=== PATIENT | male | born 1970 | race Hispanic/Latino ===

== ENCOUNTER 2017-08-07 20:48 | Inpatient (IN) | payer MEDICAID ==
--- NOTE | 2017-08-07 21:06 | C.PDOC ---
History Of Present Illness 47 y/o male presents via EMS for psychiatric transfer from [facility]. Patient was already evaluated and medically cleared for psychiatric admission. Accepted to [facility] psychiatric unit under service of Dr. Flores Time Seen by Provider: 08/07/17 21:04 Chief Complaint (Nursing): Medical Clearance History Per: Patient History/Exam Limitations: no limitations Onset/Duration Of Symptoms: Days Current Symptoms Are (Timing): Still Present Reports Recently: Seen In ED Past Medical History Reviewed: Historical Data, Nursing Documentation, Vital Signs Vital Signs: Last Vital Signs Temp 97.9 F 08/07/17 20:50 Pulse 94 H 08/07/17 20:50 Resp 18 08/07/17 20:50 BP 110/75 08/07/17 20:50 Pulse Ox 97 08/07/17 21:06 - Medical History PMH: Back Problems, Bipolar Disorder, HTN, Malignancy (Lung CA), Pancreatitis, Schizophrenia, Seizures (DUE TO ALCOHOL W/D) Other Surgeries: Spinal surgery Family History: States: No Known Family Hx - Social History Hx Alcohol Use: Yes Hx Substance Use: No (DENIED) Review Of Systems Constitutional: Negative for: Fever Respiratory: Negative for: Shortness of Breath Gastrointestinal: Negative for: Abdominal Pain Psych: Positive for: Depression Physical Exam - Physical Exam Appears: Non-toxic, No Acute Distress Skin: Warm, Dry Head: Normacephalic Eye(s): bilateral: Normal Inspection Oral Mucosa: Moist Neck: Supple Chest: Symmetrical Cardiovascular: Rhythm Regular Respiratory: No Rales, No Rhonchi, No Wheezing Gastrointestinal/Abdominal: Soft, No Tenderness, No Distention Extremity: Bilateral: Atraumatic, Normal Color And Temperature, Normal ROM Neurological/Psych: Oriented x3, Other (Depressed affect) Gait: Steady ED Course And Treatment O2 Sat by Pulse Oximetry: 97 (RA) Pulse Ox Interpretation: Normal Progress Note: Pt already medically cleared for admision. Dr. Flores to take over care Disposition Discussed With : Suzanna Flores Comment: accepted the pt on his service and took over the care at 9PM Doctor Will See Patient In The: Hospital Counseled Patient/Family Regarding: Studies Performed, Diagnosis - Disposition Disposition: HOSPITALIZED Disposition Time: 21:04 Condition: FAIR Forms: [facility] (Macedonian) - Clinical Impression Clinical Impression: Major depression - Scribe Statement The provider has reviewed the documentation as recorded by the Scribe (Portia Farris) Provider Attestation: All medical record entries made by the Scribe were at my direction and personally dictated by me. I have reviewed the chart and agree that the record accurately reflects my personal performance of the history, physical exam, medical decision making, and the department course for this patient. I have also personally directed, reviewed, and agree with the discharge instructions and disposition. Decision To Admit - Pt Status Changed To: Hospital Disposition Of: Inpatient - Admit Certification Admit to Inpatient:: After my assessment, the patient will require hospitalization for at least two midnights. This is because of the severity of symptoms shown, intensity of services needed, and/or the medical risk in this patient being treated as an outpatient. - InPatient: Physician Admission Certification: I certify that this patient requires 2 or more midnights of care for the following reason:: After my assessment, the patient will require hospitalization for at least two midnights. This is because of the severity of symptoms shown, intensity of services needed, and/or the medical risk in this patient being treated as an outpatient. - . Bed Request Type: Psychiatry Admitting Physician: Suzanna Flores Patient Diagnosis: Major depression
--- NOTE | 2017-08-07 22:23 | PCM.BM ---
<Madhuri López - Last Filed: 08/07/17 22:20> Treatment Plan Problems - Problems identified on initial assessmt Depression Date Initiated: 08/07/17 Time Initiated: 22:20 Assessment reference: NA Status: Active Alcohol Abuse Date Initiated: 08/07/17 Time Initiated: 22:20 Assessment reference: NA Status: Active Treatment assets and liabiliti Patient Assests: cooperative, ADL independent, physically healthy, negotiates basic needs, cognitively intact Patient Liabilities: live alone (Homeless), financial problems, substance abuse (+ Benzo, THC, Bal 203, hx of Alcohol), medical problems (Pancreatitis, Colon Ca , Anemia, GI bleed, HTN, Chronic back pain) - Milieu Protocol Maintain good personal hygiene: daily Encourage regular showers, daily Remind patient to perform daily oral care, daily Assist patient to perform ADL's (Self) Conduct patient checks and document Observation sheet: Q15 minutes (Ssfety) Maintain personal safety: every shift Educate patient to report safety concerns to staff, every shift Monitor environment for contraband/sharps Medication safety: Monitor for expected outcome, potential side effects: every shift, Assess barriers to learning: every shift, Assess readiness for medication education: every shift <Suzanna Flores - Last Filed: 08/09/17 19:03> - Diagnosis (1) Schizoaffective disorder Status: Acute Interventions: 08/09/17 19:03 * Assess/adjust medications daily and /or as needed * See patient on an individual basis 7x/week to assess status of hallucinations * Discuss risks, benefits, side effects and alternatives of medications * (2) Alcohol dependence Status: Acute Interventions: 08/09/17 19:03 * Assess 7x/week regarding severity of withdrawal * Educate regarding risks, benefits, side effects and alternatives of medications * Use Motivational Interviewing for abstinence * Use CBT for relapse prevention * Medication management for withdrawal symptoms * Encourage medication assisted treatment * <Hyacinth Xiong - Last Filed: 08/09/17 19:07> Family Contact Family involvement: Patient does not wish Family/SO involvement Family contact: Patient declines to allow family contact at present - Goals for Treatment Patient goals for treatment: "I to be referred to a care home house or residential program." Discharge/Continuing Care - Education Needs Education Needs: Patient Medication, Patient Diagnosis/Disease Process, Patient Coping Skills, Patient Aftercare Safety Plan - Discharge Discharge Criteria: Free of Suicidal thoughts, Free of paranoid thoughts, Free of agitation, Normal sleep pattern, Ability to care for self, No longer exhibiting s/s of withdrawal, Reduction of target symptoms Discharge to:: Substance Abuse Rehab - Treatment Team Participation Discussed with Family/SO: No Was Patient/Family/SO present at Treatment Team Meeting: Yes
[2017-08-08] MEDS: Multiple Vitamins Tab PO SCH (10:03)
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
[2017-08-08] MEDS: Oxycodone/Acetaminophen 5/325 mg Tab PO PRN (16:01)
[2017-08-08] MEDS: Divalproex 500 mg DR Tab PO SCH ×3 (16:20→17:34)
[2017-08-08] MEDS: Bacitracin Ointment 30 GM TUBE TOP SCH (16:39)
[2017-08-08] MEDS: Silver Sulfadiazine 1% Cream (20 gm) TOP SCH (17:06)
[2017-08-08] MEDS ORDERED: Tmp-Smz 800 mg-160 mg DS Tab PO SCH (18:00)
[2017-08-08 20:14] LABS: BASO # 0.1 K/uL (0.0-0.2); BASO % 0.9 % (0.0-2.0); EOS # 0.3 K/uL (0.0-0.7); EOS % 3.5 % (0.0-4.0); HEMOGLOBIN 8.8 g/dL (12.0-18.0); LYMPH # 1.6 K/uL (1.0-4.3); LYMPH % 22.9 % (20.0-40.0); MEAN CELL VOLUME 90.6 fL (80.0-94.0); MEAN CORPUSCULAR HGB CONC 33.1 g/dL (33.0-37.0); MONO # 0.8 K/uL (0.0-0.8); MONO % 11.3 % (0.0-10.0); NEUT # 4.4 K/uL (1.8-7.0); NEUT % 61.4 % (50.0-75.0); NRBC % 0.2 % (0.0-2.0); RBC 2.94 Mil/uL (4.40-5.90); RED CELL DISTRIBUTION WIDTH 15.5 % (11.5-14.5); WHITE BLOOD COUNT 7.2 K/uL (4.8-10.8)
[2017-08-08 20:27] LABS: ALB/GLOB RATIO 1.1 (1.0-2.1); ALBUMIN 3.1 g/dL (3.5-5.0); ALT/SGPT 37 U/L (21-72); AST/SGOT 40 U/L (17-59); BLOOD UREA NITROGEN 16 mg/dL (9-20); CALCIUM 8.4 mg/dl (8.6-10.4); GFR AFRICAN-AMERICAN > 60; GFR NON-AFRICAN AMERICAN > 60
[2017-08-09] MEDS: Oxycodone/Acetaminophen 5/325 mg Tab PO PRN ×4 (00:07→18:35)
[2017-08-09 07:23] LABS: BASO # 0.1 K/uL (0.0-0.2); BASO % 1.1 % (0.0-2.0); EOS # 0.3 K/uL (0.0-0.7); EOS % 4.7 % (0.0-4.0); HEMOGLOBIN 9.4 g/dL (12.0-18.0); LYMPH % 30.5 % (20.0-40.0); MEAN CELL VOLUME 91.6 fL (80.0-94.0); MEAN CORPUSCULAR HEMOGLOBIN 31.1 pg (27.0-31.0); MEAN CORPUSCULAR HGB CONC 33.9 g/dL (33.0-37.0); MONO # 0.6 K/uL (0.0-0.8); MONO % 9.9 % (0.0-10.0); NEUT # 3.5 K/uL (1.8-7.0); NEUT % 53.8 % (50.0-75.0); NRBC % 0.1 % (0.0-2.0); RBC 3.02 Mil/uL (4.40-5.90); RED CELL DISTRIBUTION WIDTH 15.6 % (11.5-14.5); WHITE BLOOD COUNT 6.4 K/uL (4.8-10.8)
[2017-08-09 07:45] LABS: ALB/GLOB RATIO 1.1 (1.0-2.1); ALBUMIN 3.1 g/dL (3.5-5.0); ALT/SGPT 29 U/L (21-72); AST/SGOT 37 U/L (17-59); BLOOD UREA NITROGEN 16 mg/dL (9-20); CALCIUM 8.5 mg/dl (8.6-10.4); GFR AFRICAN-AMERICAN > 60; GFR NON-AFRICAN AMERICAN > 60
[2017-08-09] MEDS: Tmp-Smz 800 mg-160 mg DS Tab PO SCH ×2 (09:01→21:19)
[2017-08-09] MEDS: Bacitracin Ointment 30 GM TUBE TOP SCH (09:01)
[2017-08-09] MEDS: Silver Sulfadiazine 1% Cream (20 gm) TOP SCH ×2 (09:01→17:59)
[2017-08-09] MEDS: Divalproex 500 mg DR Tab PO SCH ×2 (09:02→17:46)
[2017-08-09] MEDS: Multiple Vitamins Tab PO SCH (09:02)
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
--- NOTE | 2017-08-09 19:02 | PCM.PYCHPN ---
Psychiatric Progress Note - Psychiatric Progress Note Patient seen today, length of contact: 16 min Patient Chief Complaint: "I m feeling very irritable." Problems Identified/Issues Discussed: Patient seen and evaluated, chart reviewed and discussed with the nurse. Patient remained disorganized and internally preoccupied. He still reports of hearing voices. Patient still appears paranoid and delusional. Patient reports withdrawal symptoms including nausea, headaches, cramps and sweating. He reports depressed mood and feelings of hopelessness and helplessness. Patient remained isolated, confined and withdrawn. Patient is compliant with medications and denies any side effects. Symptoms are improving but need more time to stabilize. Support and psychoeducation given. Medication Change: Yes (Librium taper, increase Haldol) Medical Record Reviewed: Yes Mental Status Examination - Cognitive Function Orientation: Person, Place, Situation Memory: Intact Attention: WNL Concentration: Poor Association: Loose Fund of Knowledge: Poor - Mood Mood: Depressed, Anxious - Affect Affect: Broad - Speech Speech: Soft - Formal Thought Process Formal Thought Process: Hallucinations, Delusions, Paranoia, Loosening of associations - Suicidal Ideation Suicidal Ideation: No - Homicidal Ideation Homicidal Ideation: No Goal/Treatment Plan - Goal/Treatment Plan Need for Continued Stay: Severe depression anxiety, Severe functional impairment Progress Toward Problem(s) and Goals/Treatment Plan: Schizo affective disorder bipolar type Alcohol Use Disorder, severe Alcohol withdrawal Gabapentin 300mg BID Haldol 10 mg PO BID Depakote 500 mg PO BID [facility] Taper Trazodone 100 mg PO QHS All risks, benefits and alternatives of the meds discussed, and the pt agreed and understood. Medical Team consulted for treatment of brown. Help appreciated. Attend groups and activities Individual therapy daily Psychoeducation and support daily Encourage compliance with meds and after care Refer to outpatient program Teach healthy lifestyle methods, i.e. diet, exercise, meditation Smoking cessation and patch - Smoking Cessation Smoking Cessation Initiated: No
[2017-08-10] MEDS: Oxycodone/Acetaminophen 5/325 mg Tab PO PRN (07:29)
[2017-08-10] MEDS: Tmp-Smz 800 mg-160 mg DS Tab PO SCH ×2 (09:09→21:09)
[2017-08-10] MEDS: Multiple Vitamins Tab PO SCH (09:09)
[2017-08-10] MEDS: Divalproex 500 mg DR Tab PO SCH ×2 (09:10→17:11)
[2017-08-10] MEDS ORDERED: Pneumococcal 23-Valent Vaccine IM ONE (10:00)
[2017-08-10] MEDS: Silver Sulfadiazine 1% Cream (20 gm) TOP SCH ×2 (10:14→17:15)
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
[2017-08-10] MEDS: Oxycodone/Acetaminophen 5/325 mg Tab PO SCH (21:09)
[2017-08-11 07:59] LABS: BASO # 0.1 K/uL (0.0-0.2); BASO % 1.5 % (0.0-2.0); EOS # 0.2 K/uL (0.0-0.7); EOS % 4.1 % (0.0-4.0); HEMOGLOBIN 9.2 g/dL (12.0-18.0); LYMPH # 1.7 K/uL (1.0-4.3); LYMPH % 29.3 % (20.0-40.0); MEAN CELL VOLUME 90.4 fL (80.0-94.0); MEAN CORPUSCULAR HEMOGLOBIN 30.4 pg (27.0-31.0); MEAN CORPUSCULAR HGB CONC 33.7 g/dL (33.0-37.0); MEAN PLATELET VOLUME 6.8 fL (7.2-11.7); MONO # 0.7 K/uL (0.0-0.8); NEUT # 3.1 K/uL (1.8-7.0); NEUT % 53.1 % (50.0-75.0); RBC 3.03 Mil/uL (4.40-5.90); WHITE BLOOD COUNT 5.8 K/uL (4.8-10.8)
[2017-08-11 08:19] LABS: ALB/GLOB RATIO 1.1 (1.0-2.1); ALBUMIN 3.3 g/dL (3.5-5.0); ALT/SGPT 29 U/L (21-72); AST/SGOT 39 U/L (17-59); BLOOD UREA NITROGEN 13 mg/dL (9-20); CALCIUM 8.6 mg/dl (8.6-10.4); GFR AFRICAN-AMERICAN > 60; GFR NON-AFRICAN AMERICAN > 60
[2017-08-11] MEDS: Divalproex 500 mg DR Tab PO SCH ×2 (09:56→17:18)
[2017-08-11] MEDS: Tmp-Smz 800 mg-160 mg DS Tab PO SCH ×2 (09:56→22:48)
[2017-08-11] MEDS: Multiple Vitamins Tab PO SCH (09:56)
[2017-08-11] MEDS: Oxycodone/Acetaminophen 5/325 mg Tab PO SCH ×2 (09:57→22:48)
[2017-08-11] MEDS: Silver Sulfadiazine 1% Cream (20 gm) TOP SCH ×2 (10:03→17:44)
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
[2017-08-11] MEDS: Saccharomyces Boulardi 250 mg Cap PO SCH (17:45)
--- NOTE | 2017-08-11 20:29 | CP.PCM.PCO ---
Physician Communication Note - Physician Communication Note Physician Communication Note: Please see above
[2017-08-12 06:41] VITALS: RESP 20
[2017-08-12 08:59] LABS: BASO # 0.1 K/uL (0.0-0.2); BASO % 0.7 % (0.0-2.0); EOS # 0.2 K/uL (0.0-0.7); EOS % 2.4 % (0.0-4.0); HEMOGLOBIN 10.7 g/dL (12.0-18.0); LYMPH # 1.5 K/uL (1.0-4.3); LYMPH % 17.7 % (20.0-40.0); MEAN CELL VOLUME 90.9 fL (80.0-94.0); MEAN CORPUSCULAR HEMOGLOBIN 30.5 pg (27.0-31.0); MEAN CORPUSCULAR HGB CONC 33.6 g/dL (33.0-37.0); MEAN PLATELET VOLUME 7.1 fL (7.2-11.7); MONO # 0.7 K/uL (0.0-0.8); MONO % 8.2 % (0.0-10.0); NEUT # 5.9 K/uL (1.8-7.0); RBC 3.5 Mil/uL (4.40-5.90); RED CELL DISTRIBUTION WIDTH 14.9 % (11.5-14.5); WHITE BLOOD COUNT 8.3 K/uL (4.8-10.8)
[2017-08-12 09:12] LABS: ALB/GLOB RATIO 1.2 (1.0-2.1); ALBUMIN 3.8 g/dL (3.5-5.0); ALT/SGPT 27 U/L (21-72); AST/SGOT 39 U/L (17-59); BLOOD UREA NITROGEN 12 mg/dL (9-20); GFR AFRICAN-AMERICAN > 60; GFR NON-AFRICAN AMERICAN > 60
[2017-08-12] MEDS: Divalproex 500 mg DR Tab PO SCH ×2 (09:28→18:38)
[2017-08-12] MEDS: Multiple Vitamins Tab PO SCH (09:28)
[2017-08-12] MEDS: Silver Sulfadiazine 1% Cream (20 gm) TOP SCH ×2 (09:29→18:12)
[2017-08-12] MEDS: Saccharomyces Boulardi 250 mg Cap PO SCH ×2 (09:29→18:39)
[2017-08-12] MEDS: Tmp-Smz 800 mg-160 mg DS Tab PO SCH (09:30)
[2017-08-12] MEDS: Oxycodone/Acetaminophen 5/325 mg Tab PO SCH ×2 (12:34→21:14)
--- NOTE | 2017-08-12 13:08 | PCM.PYCHPN ---
Psychiatric Progress Note - Psychiatric Progress Note Patient seen today, length of contact: 16 min Patient Chief Complaint: "I m feeling little better." Problems Identified/Issues Discussed: Patient seen and evaluated, chart reviewed and discussed with the nurse. Patient reports improvement in his mood and paranoia. However, he still reports depressed mood. Patient reports withdrawal symptoms including headaches,and sweating. Patient remained isolated, confined and withdrawn. Patient is compliant with medications and denies any side effects. Symptoms are improving but need more time to stabilize. Support and psychoeducation given. Medication Change: No Medical Record Reviewed: Yes Mental Status Examination - Cognitive Function Orientation: Person, Place, Situation Memory: Intact Attention: WNL Concentration: Poor Association: Loose Fund of Knowledge: Poor - Mood Mood: Depressed, Anxious - Affect Affect: Broad - Speech Speech: Soft - Formal Thought Process Formal Thought Process: Loosening of associations - Suicidal Ideation Suicidal Ideation: No - Homicidal Ideation Homicidal Ideation: No Goal/Treatment Plan - Goal/Treatment Plan Need for Continued Stay: Severe depression anxiety, Severe functional impairment Progress Toward Problem(s) and Goals/Treatment Plan: Schizo affective disorder bipolar type Alcohol Use Disorder, severe Alcohol withdrawal Gabapentin 600mg BID Haldol 10 mg PO BID Depakote 500 mg PO BID Trazodone 100 mg PO QHS All risks, benefits and alternatives of the meds discussed, and the pt agreed and understood. Medical Team consulted for treatment of brown. Help appreciated. Attend groups and activities Individual therapy daily Psychoeducation and support daily Encourage compliance with meds and after care Refer to outpatient program Teach healthy lifestyle methods, i.e. diet, exercise, meditation Smoking cessation and patch - Smoking Cessation Smoking Cessation Initiated: No
[2017-08-13 08:48] LABS: BASO # 0.1 K/uL (0.0-0.2); BASO % 1.3 % (0.0-2.0); EOS # 0.2 K/uL (0.0-0.7); EOS % 3.5 % (0.0-4.0); HEMOGLOBIN 10.1 g/dL (12.0-18.0); LYMPH % 31.6 % (20.0-40.0); MEAN CELL VOLUME 90.4 fL (80.0-94.0); MEAN CORPUSCULAR HEMOGLOBIN 30.2 pg (27.0-31.0); MEAN CORPUSCULAR HGB CONC 33.4 g/dL (33.0-37.0); MEAN PLATELET VOLUME 7.4 fL (7.2-11.7); MONO # 0.7 K/uL (0.0-0.8); MONO % 11.5 % (0.0-10.0); NEUT # 3.3 K/uL (1.8-7.0); NEUT % 52.1 % (50.0-75.0); RBC 3.34 Mil/uL (4.40-5.90); RED CELL DISTRIBUTION WIDTH 15.1 % (11.5-14.5); WHITE BLOOD COUNT 6.4 K/uL (4.8-10.8)
[2017-08-13 09:02] LABS: ALB/GLOB RATIO 1.2 (1.0-2.1); ALBUMIN 3.7 g/dL (3.5-5.0); ALT/SGPT 23 U/L (21-72); AST/SGOT 35 U/L (17-59); BLOOD UREA NITROGEN 18 mg/dL (9-20); GFR AFRICAN-AMERICAN > 60; GFR NON-AFRICAN AMERICAN > 60
[2017-08-13] MEDS: Multiple Vitamins Tab PO SCH (10:03)
[2017-08-13] MEDS: Divalproex 500 mg DR Tab PO SCH ×2 (10:03→17:11)
[2017-08-13] MEDS: Saccharomyces Boulardi 250 mg Cap PO SCH ×2 (10:07→17:12)
[2017-08-13] MEDS: Silver Sulfadiazine 1% Cream (20 gm) TOP SCH ×2 (10:08→17:11)
[2017-08-13] MEDS: Oxycodone/Acetaminophen 5/325 mg Tab PO SCH ×2 (10:10→22:43)
--- NOTE | 2017-08-13 10:50 | PCM.PYCHPN ---
Psychiatric Progress Note - Psychiatric Progress Note Patient seen today, length of contact: 16 min Patient Chief Complaint: "I m feeling little better." Problems Identified/Issues Discussed: Patient seen and evaluated, chart reviewed and discussed with the nurse. Patient still reports depressed mood. Patient reports withdrawal symptoms including headaches,and sweating. Patient remained isolated, confined and withdrawn. Patient is compliant with medications and denies any side effects. Symptoms are improving but need more time to stabilize. Support and psychoeducation given. Medication Change: No Medical Record Reviewed: Yes Mental Status Examination - Cognitive Function Orientation: Person, Place, Situation Memory: Intact Attention: WNL Concentration: Poor Association: Loose Fund of Knowledge: Poor - Mood Mood: Depressed, Anxious - Affect Affect: Broad - Speech Speech: Soft - Formal Thought Process Formal Thought Process: Loosening of associations - Suicidal Ideation Suicidal Ideation: No - Homicidal Ideation Homicidal Ideation: No Goal/Treatment Plan - Goal/Treatment Plan Need for Continued Stay: Severe depression anxiety, Severe functional impairment Progress Toward Problem(s) and Goals/Treatment Plan: Schizo affective disorder bipolar type Alcohol Use Disorder, severe Alcohol withdrawal Gabapentin 600mg BID Haldol 10 mg PO BID Depakote 500 mg PO BID Trazodone 100 mg PO QHS All risks, benefits and alternatives of the meds discussed, and the pt agreed and understood. Medical Team consulted for treatment of brown. Help appreciated. Attend groups and activities Individual therapy daily Psychoeducation and support daily Encourage compliance with meds and after care Refer to outpatient program Teach healthy lifestyle methods, i.e. diet, exercise, meditation Smoking cessation and patch
[2017-08-14 07:00] VITALS: TEMP 97.8
[2017-08-14] MEDS: Divalproex 500 mg DR Tab PO SCH ×2 (09:06→18:19)
[2017-08-14] MEDS: Multiple Vitamins Tab PO SCH (09:07)
[2017-08-14] MEDS: Saccharomyces Boulardi 250 mg Cap PO SCH ×2 (09:07→18:17)
[2017-08-14] MEDS: Silver Sulfadiazine 1% Cream (20 gm) TOP SCH (09:07)
[2017-08-14] MEDS ORDERED: Oxycodone/Acetaminophen 5/325 mg Tab PO PRN (11:31)
--- NOTE | 2017-08-14 14:41 | PCM.BM ---
<Hyacinth Xiong - Last Filed: 08/14/17 14:41> Treatment Plan Problems - Problems identified on initial assessmt Depression Date Initiated: 08/07/17 Time Initiated: 22:20 Assessment reference: NA Status: Active Alcohol Abuse Date Initiated: 08/07/17 Time Initiated: 22:20 Assessment reference: NA Status: Active Treatment assets and liabiliti Patient Assests: cooperative, ADL independent, physically healthy, negotiates basic needs, cognitively intact Patient Liabilities: live alone (Homeless), financial problems, substance abuse (+ Benzo, THC, Bal 203, hx of Alcohol), medical problems (Pancreatitis, Colon Ca , Anemia, GI bleed, HTN, Chronic back pain) - Milieu Protocol Maintain good personal hygiene: daily Encourage regular showers, daily Remind patient to perform daily oral care, daily Assist patient to perform ADL's (Self) Conduct patient checks and document Observation sheet: Q15 minutes (Ssfety) Maintain personal safety: every shift Educate patient to report safety concerns to staff, every shift Monitor environment for contraband/sharps Medication safety: Monitor for expected outcome, potential side effects: every shift, Assess barriers to learning: every shift, Assess readiness for medication education: every shift Milieu Narrative: Schizo affective disorder bipolar type Alcohol Use Disorder, severe Alcohol withdrawal Gabapentin 600mg BID Haldol 10 mg PO BID Depakote 500 mg PO BID Trazodone 100 mg PO QHS All risks, benefits and alternatives of the meds discussed, and the pt agreed and understood. Medical Team consulted for treatment of brown. Help appreciated. Attend groups and activities Individual therapy daily Psychoeducation and support daily Encourage compliance with meds and after care Refer to outpatient program Teach healthy lifestyle methods, i.e. diet, exercise, meditation Smoking cessation and patch Family Contact Family involvement: Patient does not wish Family/SO involvement Family contact: Patient declines to allow family contact at present - Goals for Treatment Patient goals for treatment: "I to be referred to a nursing home house or residential program." Discharge/Continuing Care - Education Needs Education Needs: Patient Medication, Patient Diagnosis/Disease Process, Patient Coping Skills, Patient Aftercare Safety Plan - Discharge Discharge Criteria: Free of Suicidal thoughts, Free of paranoid thoughts, Free of agitation, Normal sleep pattern, Ability to care for self, No longer exhibiting s/s of withdrawal, Reduction of target symptoms Discharge to:: Substance Abuse Rehab - Treatment Team Participation Patient/Family/SO Statement: Schizo affective disorder bipolar type Alcohol Use Disorder, severe Alcohol withdrawal Gabapentin 600mg BID Haldol 10 mg PO BID Depakote 500 mg PO BID Trazodone 100 mg PO QHS All risks, benefits and alternatives of the meds discussed, and the pt agreed and understood. Medical Team consulted for treatment of brown. Help appreciated. Attend groups and activities Individual therapy daily Psychoeducation and support daily Encourage compliance with meds and after care Refer to outpatient program Teach healthy lifestyle methods, i.e. diet, exercise, meditation Smoking cessation and patch Discussed with Family/SO: No Was Patient/Family/SO present at Treatment Team Meeting: Yes Treatment Plan Review - Problem Depression Time Initiated: 22:20 Alcohol Abuse Time Initiated: 22:20 - Discharge / Continuing Care Discharge to:: Substance Abuse Rehab Behavioral Health Services: Residential treatment Health Needs: Alcohol/Drug treatment <Madhuri López - Last Filed: 08/14/17 14:52> Treatment Plan Problems - Problems identified on initial assessmt Depression Date Initiated: 08/14/17 Time Initiated: 14:51 Assessment reference: NA Treatment Plan Review - Problem Depression Date Initiated: 08/14/17 Time Initiated: 14:52 Progress toward outcomes: improved Alcohol Abuse Date Initiated: 08/14/17 Time Initiated: 14:52 Progress toward outcomes: improved <Suzanna Flores - Last Filed: 08/15/17 09:58> - Diagnosis (1) Schizoaffective disorder Status: Acute Interventions: 08/15/17 09:58 * Assess/adjust medications daily and /or as needed * See patient on an individual basis 7x/week to assess status of hallucinations * Discuss risks, benefits, side effects and alternatives of medications * (2) Alcohol dependence Status: Acute Interventions: 08/15/17 09:58 * Assess 7x/week regarding severity of withdrawal * Educate regarding risks, benefits, side effects and alternatives of medications * Use Motivational Interviewing for abstinence * Use CBT for relapse prevention * Medication management for withdrawal symptoms * Encourage medication assisted treatment *
[2017-08-15 06:47] VITALS: BP 103/59; PULSE 74; O2SAT 97
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
[2017-08-15] MEDS: Saccharomyces Boulardi 250 mg Cap PO SCH (12:21)
[2017-08-15] MEDS: Multiple Vitamins Tab PO SCH (12:21)
== END 2017-08-15 12:30 | disposition home or self-care (01) | DRG 430 ==
LOC: C.ER 20:48 → C.5E 21:04
PROVIDERS: ADMIT Psychiatry & Neurology Psychiatry; ATTEND Psychiatry & Neurology Psychiatry
PROC: GZ5 Mental Health, Individual Psychotherapy (ICD-10-PCS; principal; 2017-08-10)
PROC: GZ56ZZZ Individual Psychotherapy, Supportive (ICD-10-PCS; 2017-08-10)
DX: F25.0 Schizoaffective disorder, bipolar type (principal); F10.239 Alcohol dependence with withdrawal, unspecified; F43.10 Post-traumatic stress disorder, unspecified; I10 Essential (primary) hypertension; R45.851 Suicidal ideations; F17.210 Nicotine dependence, cigarettes, uncomplicated; T21.25XA Burn of second degree of buttock, initial encounter; Z59.0 Homelessness; Z79.899 Other long term (current) drug therapy; Z85.118 Personal history of other malignant neoplasm of bronchus and lung; Z91.19 Patient's noncompliance with other medical treatment and regimen